=== PATIENT | female | born 2000 | race Caucasian/White ===

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

== ENCOUNTER 2021-05-17 20:23 | Emergency (ER) | payer BC, OTHER ==
[2021-05-17 21:27] LABS: #Eosinphils 0.1 thou/uL (0.0-0.7); #Lymphocytes 3.1 thou/uL (1.20-3.40); #Monocytes 0.6 thou/uL (0.11-0.59); #Neutrophils 8.6 thou/uL (1.40-6.50); %Eosinophils 0.6 % (0.0-10.0); %Lymphocytes 25.3 % (21.0-51.0); %Neutrophils 69.1 % (42.0-75.0); Hemoglobin 13.3 g/dL (12.0-16.0); Mean Corpuscular HGB CONC 34.3 g/dL (32.0-36.0); Mean Corpuscular Hemoglobin 32.8 pg (27.0-31.0); Mean Corpuscular Volume 95.9 fL (78.0-98.0); Mean Platelet Volume 7.2 fL (7.4-10.4); Platelet Count 258 thou/uL (130-400); RBC Distribution Width 11.7 % (11.5-14.5); Red Blood Cell (RBC) Count 4.05 mill/uL (4.20-5.40); White Blood Cell (WBC) Count 12.4 thou/uL (4.8-10.8)
[2021-05-17 21:48] LABS: ALT (SGPT) 9 U/L (8-55); AST (SGOT) 13 U/L (5-34); Albumin 4.1 g/dL (3.5-5.0); Alkaline Phosphatase 27 U/L (40-110); Anion Gap 13 mmol/L (10-20); BUN (Urea Nitrogen) 8 mg/dL (7.0-18.7); Bilirubin, Total 0.5 mg/dL (0.2-1.2); Calc. Creatinine Clearance 0 mL/min (70-130); Calcium 9.1 mg/dL (7.8-10.44); Carbon Dioxide 21 mmol/L (22-29); Chloride 109 mmol/L (98-107); Globulin 3.3 g/dL (2.4-3.5); Glucose 89 mg/dL (70-105); Potassium 3.2 mmol/L (3.5-5.1); Protein, Total 7.4 g/dL (6.0-8.3); Sodium 140 mmol/L (136-145)
[2021-05-17] MEDS ORDERED: Ondansetron PF 4 MG/2 ML Vial ONE (22:11)
[2021-05-17] MEDS ORDERED: Acetaminophen 500 MG TAB ONE (22:11)
[2021-05-17 22:43] LABS: Pregnancy Test - Urine (BHCG) Negative (Negative); Pregu Control Background? CLEAR/WHITE (CLR/WHITE); Pregu Control Bar Appear? YES (CONTROL BAR); Specific Gravity 1.028 (1.002-1.036)
[2021-05-17 22:45] LABS: Bacteria/HPF 3+ HPF (None Seen); Bilirubin Negative (Negative); Blood, Urine Negative (Negative); Clarity Clear (Clear); Glucose, Urine (Dipstick) Normal (Negative); Ketone, Urine Greater than 150 mg/dL (Negative); Leukocyte 25 Leu/uL (Negative); Mucous/LPF 2+ LPF (<2+); Nitrite Negative (Negative); Protein, Urine (Dipstick) 20 mg/dL (Neg-Trace); RBC/HPF 0-3 HPF (0-3); Specific Gravity, Urine 1.028 (1.002-1.036); Squamous Epithelial 0-3 HPF (0-3); pH, Urine 6.5 (5.0-9.0)
[2021-05-17] MEDS ORDERED: Potassium Chloride 20 MEQ TAB ONE (23:14)
[2021-05-17] MEDS ORDERED: Promethazine HCl 25 MG/ML VIAL ONE (23:14)
== END 2021-05-18 00:35 | disposition home or self-care (01) ==
LOC: ERS 20:23
DX: E87.6 Hypokalemia (principal); R11.2 Nausea with vomiting, unspecified; R10.30 Lower abdominal pain, unspecified; F17.290 Nicotine dependence, other tobacco product, uncomplicated
CPT/HCPCS: 36415; 80053; 81003; 81015; 81025; 85025; 87077; 87086; 87186; 96374; 96375; J2405; J2550

== ENCOUNTER 2021-09-12 01:16 | Emergency (ER) | payer BC ==
[2021-09-12 01:57] LABS: #Basophils 0.1 thou/uL (0.0-0.2); #Eosinphils 0.1 thou/uL (0.0-0.7); #Lymphocytes 3.3 thou/uL (1.20-3.40); #Monocytes 0.5 thou/uL (0.11-0.59); #Neutrophils 3.6 thou/uL (1.40-6.50); %Basophils 1.9 % (0.0-1.0); %Eosinophils 0.7 % (0.0-10.0); %Lymphocytes 43.7 % (21.0-51.0); %Monocytes 6.6 % (0.0-10.0); %Neutrophils 47.1 % (42.0-75.0); Hemoglobin 14.4 g/dL (12.0-16.0); Mean Corpuscular HGB CONC 34.4 g/dL (32.0-36.0); Mean Corpuscular Hemoglobin 33.1 pg (27.0-31.0); Mean Corpuscular Volume 96.2 fL (78.0-98.0); Mean Platelet Volume 6.9 fL (7.4-10.4); Platelet Count 287 thou/uL (130-400); RBC Distribution Width 11.2 % (11.5-14.5); Red Blood Cell (RBC) Count 4.35 mill/uL (4.20-5.40); White Blood Cell (WBC) Count 7.6 thou/uL (4.8-10.8)
[2021-09-12 02:13] LABS: BHCG - Serum Negative (NEGATIVE); Pregs Control Background? CLEAR/WHITE (CLR/WHITE); Pregs Control Bar Appear? YES (CONTROL BAR)
[2021-09-12 02:22] LABS: ALT (SGPT) 16 U/L (8-55); AST (SGOT) 17 U/L (5-34); Albumin 4.3 g/dL (3.5-5.0); Alkaline Phosphatase 27 U/L (40-110); Anion Gap 13 mmol/L (10-20); BUN (Urea Nitrogen) 9 mg/dL (7.0-18.7); Bilirubin, Total 0.5 mg/dL (0.2-1.2); Calc. Creatinine Clearance 0 mL/min (70-130); Calcium 10.1 mg/dL (7.8-10.44); Carbon Dioxide 23 mmol/L (22-29); Chloride 108 mmol/L (98-107); Globulin 3.4 g/dL (2.4-3.5); Glucose 115 mg/dL (70-105); Potassium 4.4 mmol/L (3.5-5.1); Protein, Total 7.7 g/dL (6.0-8.3); Sodium 140 mmol/L (136-145)
[2021-09-12 04:05] LABS: Bilirubin Negative (Negative); Blood, Urine Negative (Negative); Clarity Clear (Clear); Glucose, Urine (Dipstick) Normal (Negative); Ketone, Urine 40 mg/dL (Negative); Leukocyte Negative Leu/uL (Negative); Nitrite Negative (Negative); Protein, Urine (Dipstick) 20 mg/dL (Neg-Trace); Specific Gravity, Urine 1.023 (1.002-1.036); Urobilinogen Normal mg/dL (Less than 2); pH, Urine 6.5 (5.0-9.0)
[2021-09-12] MEDS ORDERED: Promethazine HCl 25 MG/ML VIAL ONE (04:34)
== END 2021-09-12 07:14 | disposition home or self-care (01) ==
LOC: ERS 01:16
DX: R10.31 Right lower quadrant pain (principal); F17.290 Nicotine dependence, other tobacco product, uncomplicated
CPT/HCPCS: 36415; 74177; 76856; 80053; 81003; 83690; 84703; 85025; 87086; 93976; 96365; J2550